=== PATIENT | male | born 1980 | race Caucasian/White ===

== ENCOUNTER → 2024-05-18 09:08 | Outpatient (REF) | payer SELFPAY | LOC: RAD 09:08 | PROVIDERS: ATTENDING PHYSICIAN Nurse Practitioner | DX: Z00.01 Encounter for general adult medical examination with abnormal findings (principal); E78.5 Hyperlipidemia, unspecified | CPT/HCPCS: 75571 ==

== ENCOUNTER 2024-09-18 13:27 | Emergency (ER) | payer BC, SELFPAY ==
[2024-09-18 13:40] VITALS: BP 148/97
[2024-09-18 13:57] LABS: % Basophils 0.4 % (0-2); % Immature Granulocytes 0.2 % (0-0.5); % Lymphocytes 32.9 % (20.5-51.1); % Monocytes 8.7 % (1.7-9.3); % Neutrophils 56.8 % (42.2-75.2); Absolute Eosinophils 0.1 10^3/uL (0-0.7); Absolute Lymphocytes 2.7 10^3/uL (1.2-3.4); Absolute Monocytes 0.7 10^3/uL (0.1-0.6); Absolute Neutrophils 4.6 10^3/uL (1.4-6.5); Hematocrit 43.7 % (39.0-52.0); Hemoglobin 15.7 g/dL (13.0-18.0); Mean Corp Hgb Conc. 35.9 g/dL (33.0-37.0); Mean Corpuscular Hgb 31.5 pg (27.0-31.0); Mean Corpuscular Volume 87.8 fL (80.0-94.0); Mean Platelet Volume 9.2 fL (7.4-10.4); Nucleated Red Blood Cells % 0 % (-); Platelet Count 194 10^3/uL (130-400); Red Blood Cell Count 4.98 10^6/uL (4.70-6.10); White Blood Cell Count 8.1 10^3/uL (4.8-10.8)
[2024-09-18 16:09] LABS: ALT (SGPT) 33 U/L (0-50); AST (SGOT) 29 U/L (17-59); Albumin 4.8 g/dl (3.5-5.0); Alkaline Phosphatase 54 U/L (38-126); Blood Urea Nitrogen 18 mg/dl (9-20); Calcium 9.7 mg/dl (8.4-10.2); Carbon Dioxide 28 mmol/L (22-30); Chloride 101 mmol/L (98-107); Glucose 125 mg/dl (70-99); Potassium 4.2 mmol/L (3.5-5.1); Sodium 141 mmol/L (135-145); Total Bilirubin 0.7 mg/dl (0.2-1.3); Total Protein 7.4 g/dl (6.3-8.2); eGFR > 60.00
[2024-09-18 16:40] LABS: TSH Reflex To Free T4 0.84 uIU/ml (0.47-4.68)
== END 2024-09-18 15:18 ==
LOC: EMR 13:27
PROVIDERS: Emergency Medicine; EMERGENCY PHYSICIAN Emergency Medicine
DX: R00.9 Unspecified abnormalities of heart beat (principal); Z53.21 Procedure and treatment not carried out due to patient leaving prior to being seen by health care provider
CPT/HCPCS: 80053; 84443; 85025; 93005; 99283

== ENCOUNTER 2025-02-27 14:13 | Emergency (ER) | payer BC, SELFPAY ==
[2025-02-27 14:23] VITALS: BP 153/93
[2025-02-27 15:48] VITALS: BMI 28.9
[2025-02-27 15:52] LABS: % Basophils 0.4 % (0-2); % Eosinophils 1.9 % (0-6); % Immature Granulocytes 0.1 % (0-0.5); % Lymphocytes 24.3 % (20.5-51.1); % Monocytes 7.2 % (1.7-9.3); % Neutrophils 66.1 % (42.2-75.2); Absolute Eosinophils 0.1 10^3/uL (0-0.7); Absolute Lymphocytes 1.8 10^3/uL (1.2-3.4); Absolute Monocytes 0.5 10^3/uL (0.1-0.6); Absolute Neutrophils 4.8 10^3/uL (1.4-6.5); Hematocrit 41.1 % (39.0-52.0); Hemoglobin 14.5 g/dL (13.0-18.0); Mean Corp Hgb Conc. 35.3 g/dL (33.0-37.0); Mean Corpuscular Hgb 31.8 pg (27.0-31.0); Mean Corpuscular Volume 90.1 fL (80.0-94.0); Mean Platelet Volume 8.7 fL (7.4-10.4); Nucleated Red Blood Cells % 0 % (-); Platelet Count 178 10^3/uL (130-400); Red Blood Cell Count 4.56 10^6/uL (4.70-6.10); Red Cell Dist. Width 12.2 % (11.5-14.5); White Blood Cell Count 7.3 10^3/uL (4.8-10.8)
[2025-02-27 15:58] VITALS: BP 131/78
[2025-02-27 16:00] VITALS: BP 124/86
[2025-02-27 16:15] LABS: Troponin I < 0.012 ng/ml
[2025-02-27 16:22] LABS: ALT (SGPT) 31 U/L (0-50); AST (SGOT) 46 U/L (17-59); Albumin 4.8 g/dl (3.5-5.0); Alkaline Phosphatase 64 U/L (38-126); Blood Urea Nitrogen 20 mg/dl (9-20); Calcium 9.6 mg/dl (8.4-10.2); Carbon Dioxide 28 mmol/L (22-30); Chloride 101 mmol/L (98-107); Estimated Creatinine Clearance 122 ml/min; Glucose 98 mg/dl (70-99); Potassium 4.3 mmol/L (3.5-5.1); Sodium 139 mmol/L (135-145); Total Bilirubin 0.7 mg/dl (0.2-1.3); Total Protein 7.1 g/dl (6.3-8.2); eGFR > 60.00
--- NOTE | 2025-02-27 16:40 | ED.GENMED ---
History of Present Illness
General
Chief Complaint: Chest Pain
Source: patient
Time Seen by Provider: 02/27/25 16:33
History of Present Illness
History of Present Illness:
45-year-old male with past medical tree of anxiety presenting to the emergency department for evaluation after he checked his blood pressure earlier this morning noting it was around 140/90, started to get some chest discomfort and a very anxious
sensation prompting him to come to the ER for further evaluation. Patient notes that he has been seen multiple times for similar stating that he knows it is his anxiety but he gets himself worked up to the point where he needs to be evaluated to
make himself feel better. At time of my exam patient states that he is completely asymptomatic and without any concerns. He notes that about 1 year ago he did receive a full cardiac workup and was told he had no cardiac abnormalities found.
Patient notes that he had a stressful work week which she believes is the likely trigger for his symptoms today. Patient denies any shortness of breath, exertional dyspnea, orthopnea, lower extremity edema, cough, URI-like symptoms, abdominal pain,
nausea, vomiting or any other concerns. Social history was negative for cigarettes or tobacco use.
Past History
Past History
ED Past Medical History: GERD, Psychiatric (Anxiety) and Other (PNA, Anemia, Post surgical abd infection)
ED Past Surgical History: Appendectomy, Bowel resection, Orthopedic (Left knee surgery) and Other (Hernia repair, Intussusception, Meckel's diverticulum with Small bowel resection)
Social History
Tobacco: Non-smoker
Alcohol: Occasional
Drug: None
Personal:
Living: with family
Family History
Family History: Other (Hypertension in the mother A. fib and the dad hyperlipidemia in his dad.)
Review of Systems
Review of Systems
All Other Systems: ROS reviewed and negative except as documented in HPI and ROS
Phy Exam
Physical Exam
Physical Exam:
GENERAL: Alert , in no apparent distress
EYE: clear conjunctiva b/l
HEAD: NCAT
ENT: mmm.
CARDIAC: Regular rate and rhythm .
LUNGS: Clear breath sounds bilaterally, no acute respiratory distress, no wheezes/rales/rhonchi
ABDOMEN: Soft, without focal tenderness, no r/g, no cvat
NEUROLOGICAL: Alert and oriented
SKIN: Warm and dry, skin intact.
MUSCULOSKELETAL: No edema, well perfused.
PSYCH: Normal and appropriate interaction.
Scores
Heart Failure Risk
Heart Failure Risk Score: Not Applicable
Heart Score for Chest Pain Patients
STEMI patient?: No
History: Slightly or Non-Suspicious
ECG: Normal
Age: </= 45 years
Risk Factors: No Risk Factors
Troponin: </= Normal Limit
Heart Score for Chest Pain Patients: 0
Heart Score Risk: 2.5% MACE over next 6 weeks
Withdrawal Assessment of Alcohol
Withdrawal Assessment Completed?: Not applicable
Course
Orders/Labs/Results
Orders:
Orders
02/27/25 14:15
ECG [Electrocardiogram (*1)] Urgent
Reason for Study: Chest Pain
EKG- Treatment ONCE
02/27/25 15:46
Complete Blood Count/With Diff Urgent
Comprehensive Metabolic Panel Urgent
Troponin I Urgent
02/27/25 16:01
CXR2 [CR Chest - 2 Views ] Urgent
Comment:
Reason For Exam: chest pain
Abnormal Lab Results
02/27/25
15:46
RBC 4.56 L 10^6/uL
(4.70-6.10)
MCH 31.8 H pg
(27.0-31.0)
02/27/25 15:46
02/27/25 15:46
Vital Signs
Initial and Last Documented VS:
Initial Vital Signs
Temp Pulse Resp BP Pulse Ox
98.0 F 96 16 153/93 98
02/27/25 14:23 02/27/25 14:23 02/27/25 14:23 02/27/25 14:23 02/27/25 14:23
Last Documented Vital Signs
Temp Pulse Resp BP Pulse Ox
98.6 F 68 20 131/78 99
02/27/25 15:58 02/27/25 15:58 02/27/25 15:58 02/27/25 15:58 02/27/25 15:58
MDM/Problems Addressed
Differential Diagnosis Includes:
Anxiety, ACS, pneumothorax, PE, pleurisy, referred GI symptoms
MDM/Problems Addressed:
45-year-old male presenting the ER for evaluation of chest discomfort that began after taking his blood pressure this morning and noted it was a little bit higher than his usual. At time of my exam in the ER patient's symptoms are now fully
resolved and stating that he has had multiple similar episodes in the past related to his anxiety. Patient's workup was initiated on arrival with a nonischemic EKG, he has a negative troponin and otherwise unremarkable lab work. Chest x-ray shows
no acute abnormalities. Given patient is low risk chest pain I did offer to repeat a 3-hour troponin however patient states given he has had a full cardiac workup within the last year and is asymptomatic he would prefer to be discharged home.
Advised patient follow-up closely with his primary care provider. Discussed return precautions to the ER. Patient stable for discharge home.
*Radiology
Radiology exam reviewed: preliminary read by ED provider (normal CXR)
*Pulse Oximetry
Patient hypoxic: no
*EKG
Heart Rate: 94
Rate: normal
Rhythm: sinus
[place]: normal axis
Ischemia: no ischemia
*Range Technician Interpretation
Rate: normal
Rhythm: sinus
*Critical Care Note
Total Time (30-74mins, 75-104mins- exclusive of procedures): Not Applicable
Data Reviewed
Review of Other/Old Records Reveals: Records and Testing
Comment
Comment:
Patient had a negative stress test on December 21, 2022. Echocardiogram done 1 week later showed no abnormalities as well
ED Attending Note
-
Portions of this chart may have been created with voice recognition software.� Occasional wrong word or��sound alike� substitutions may have occurred due to the inherent limitations of voice recognition software.
Discharge Plan
Departure
Patient Disposition: Home (Routine Discharge)
Date of Disposition: 02/27/25
Time of Disposition: 16:40
Patient with high blood pressure during this ER visit?: Yes
Discharge Problem:
Chest pain
Instructions: Chest Pain That Is Not Caused by the Heart (DC)
Prescriptions:
No Action
omeprazole 20 MG capsule,delayed release(DR/EC)
20 mg PO DAILY
docosahexaenoic acid-epa 1 CAP capsule
1 cap PO DAILY
Multivitamin
1 tab PO DAILY
Referrals:
Radha Babcock CRNP [Family Provider] -
Interventions
Interventions:
*Risk Screen - Suicide Last Done: 02/27/25 14:23
*General Assessment Last Done: 02/27/25 15:58
*Neglect/Abuse Screening Last Done: 02/27/25 14:23
*ED- Fall Risk Assessment Last Done: 02/27/25 15:58
*ED COVID-19 Vaccine History Last Done: 02/27/25 15:58
ED- Cardiac Assessment Last Done: 02/27/25 15:58
Discharge Date and Time
Print Language: MALTESE
[2025-02-27 16:54] VITALS: BP 124/86
== END 2025-02-27 16:55 | disposition home or self-care (01) ==
LOC: EMR 14:13
PROVIDERS: Emergency Medicine; EMERGENCY PHYSICIAN Student in an Organized Health Care Education/Training Program; FAMILY PHYSICIAN Nurse Practitioner
DX: R07.89 Other chest pain (principal); K21.9 Gastro-esophageal reflux disease without esophagitis; F41.9 Anxiety disorder, unspecified
CPT/HCPCS: 99285; 71046; 80053; 84484; 85025; 93005

== ENCOUNTER 2025-08-11 06:22 | Day surgery (SDC) | payer BC, SELFPAY | END 2025-08-11 11:23 | disposition home or self-care (01) | LOC: GI 06:22 | PROVIDERS: ATTENDING PHYSICIAN Internal Medicine Gastroenterology | DX: Z12.11 Encounter for screening for malignant neoplasm of colon (principal); K64.8 Other hemorrhoids; K22.2 Esophageal obstruction; K22.89 Other specified disease of esophagus; K44.9 Diaphragmatic hernia without obstruction or gangrene; R13.10 Dysphagia, unspecified; Z86.0100 Personal history of colon polyps, unspecified | CPT/HCPCS: 43249; 43239; G0105; 88305 ==